=== PATIENT | female | born 1960 | race Caucasian/White ===

== ENCOUNTER → 2017-01-23 | Outpatient (CLI) | payer OTHER, MEDICAID | LOC: FIMAGING 14:52 | PROVIDERS: ATTEND Physician Assistant | DX: Z12.31 Encounter for screening mammogram for malignant neoplasm of breast (principal) | CPT/HCPCS: G0202 ==

== ENCOUNTER 2017-07-08 17:37 | Observation (INO) | payer OTHER, MEDICAID ==
[2017-07-08] MEDS ORDERED: NS 1,000 ML IV ONE (17:43)
[2017-07-08] MEDS ORDERED: D50W 25 GM/50 ML SYR IVP ONE ×2 (17:43→17:47)
--- NOTE | 2017-07-08 17:43 | EDPHY ---
H & P Time Seen by Provider: 07/08/17 17:43 HPI/ROS: Chief complaint. Stroke activation HPI. 56-year-old female here emergently by EMS with stroke activation. Her talked with her at 4:00 p.m. And she was normal. He called and got home about 5:00 p.m. And found the patient to have decreased responsiveness and slurred speech so he called EMS. EMS found the patient to have a blood sugar of 50. They gave her oral glucose. They recheck her glucose and found it to be 55. She arrives with continuing symptoms. No focal weakness or paresthesias. She tells me no chest discomfort or trouble breathing. She was seen by her PCP earlier today for COPD checkup and felt to be stable. ROS Constitutional. Generalized weakness Eyes. no problems with vision ENT. no sore throat, no nasal drainage Cardiovascular. no chest pain Respiratory. no shortness of breath, no cough Abdominal. no abdominal pain, no nausea/vomiting, no diarrhea . no problems urinating MS. no calf pain/swelling, no neck/back pain, no joint pain Skin. no rash Lymph. no swollen glands Neuro. Slurred speech and decreased level of consciousness and not able to walk Past Medical/Surgical History: Past medical history significant for Graves disease, depression, chronic to feet fatigue, multiple personalities, fibromyalgia Social History: , daily smoker, no alcohol Smoking Status: Current every day smoker Physical Exam: General Appearance: Alert well-developed female with slow mentation and some garbled speech. Moderate distress. Vital signs are stable Eyes: Pupils equal and round no pallor or injection. ENT, Mouth: Mucous membranes are moist. Respiratory: There are no retractions, lungs are clear to auscultation. Cardiovascular: Regular rate and rhythm. Gastrointestinal: Abdomen is soft and nontender, no masses, bowel sounds normal. Neurological: Awake and alert, sensory and motor exams grossly normal. Speech is somewhat garbled. However cranial nerves are intact. There is no pronator drift. [id number] is intact. [id number] is normal. Skin: Warm and dry, no rashes. Musculoskeletal: Neck is supple nontender. Extremities symmetrical, full range of motion. Psychiatric: Patient is oriented X 3, there is no agitation. Constitutional: Initial Vital Signs Temperature (C) 36.9 C 07/08/17 17:47 Heart Rate 71 02/26/18 17:47 Respiratory Rate 20 07/08/17 17:47 Blood Pressure 96/70 L 07/08/17 17:47 O2 Sat (%) 96 07/08/17 17:47 O2 Delivery Mode Room Air Allergies/Adverse Reactions: No Known Allergies Allergy (Verified 07/08/17 19:59) Home Medications: Medication Instructions Recorded Atorvastatin Calcium [Lipitor 20 40 mg PO DAILY #30 tab 06/29/14 mg (*)] Acyclovir [Zovirax 400 mg (*)] 400 mg PO BID PRN 12/27/14 Docosanol [Abreva (*)] 1 lupillo TP 5XD PRN 12/27/14 traMADol [Ultram 50 mg (*)] 50 - 100 mg PO DAILY PRN 12/27/14 Atenolol [Tenormin 25 mg (*)] 25 mg PO DAILY 07/08/17 Carisoprodol [Soma (*)] 350 mg PO QID 07/08/17 DULoxetine [Cymbalta 30 MG (*)] 30 mg PO DAILY 07/08/17 DULoxetine [Cymbalta 60 MG (*)] 60 mg PO DAILY 07/08/17 Fluticasone Nasal [Flonase Nasal 2 sprays NASAL DAILY 07/08/17 [employer] (RX)] Ipratropium/Albuterol [Combivent 1 inh IH QID 07/08/17 Respimat Inhal [employer](*)] Levothyroxine [Synthroid 150 mcg 150 mcg PO DAILY10 07/08/17 (*)] Lurasidone HCl [Latuda] 40 mg PO DAILY@0800 07/08/17 Meclizine HCl [Meclizine HCl 12.5 12.5 - 25 mg PO TID PRN 07/08/17 mg (*)] Naproxen 500 mg PO BID 07/08/17 Omeprazole 20 mg PO DAILY 07/08/17 Prazosin HCl [Minipress 1mg (*)] 4 mg PO HS 07/08/17 Varenicline Tartrate [Chantix 1MG 1 mg PO BID 07/08/17 (*)] Zolpidem Tartrate [Ambien 5MG (*)] 10 mg PO HS PRN 07/08/17 clonazePAM [Klonopin (*)] 0.5 mg PO TID PRN 07/08/17 tiZANidine HCL [Zanaflex] 4 mg PO DAILY 07/08/17 traZODone [traZODONE 100MG (*)] 100 - 200 mg PO HS PRN 07/08/17 Medical Decision Making - Diagnostics EKG Interpretation: EKG interpreted by me shows normal sinus rhythm normal interval and axis. QRS is normal there is no significant ST elevation or depression. No arrhythmia. The rate is 72 Imaging Results: Imaging Impressions Chest X-Ray 07/08/17 17:38 Impression: Negative portable chest. Head CT 07/08/17 17:38 Impression: Negative noncontrast CT of the brain. No evidence of intracranial hemorrhage or acute cortical ischemia. Results called to Dr. Jabier Lane at 5:50 PM at the time of the interpretation. One-view chest x-ray interpreted by me is normal Noncontrast head CT reviewed by me and discussed with Dr. Ramirez shows no evidence for intracranial bleeding Procedures: IV normal saline monitor Patient is left on the stretcher and I took a brief history and did physical exam and neurologic exam and then the patient went to head CT. On return patient is given D50W IV. Her repeat blood sugar is in the 200s. Her mental status has gradually improved to normal. [facility] is consulted. I discussed the case with Dr. Guaman from [facility]. As the patient was hypoglycemic and is improving after D50W and has a normal noncontrast head CT he recommends no further workup on less the patient develops focal symptoms. He recommends overnight admission in the hospital. ED Course/Re-evaluation: Serial evaluations and patient is improved and back to baseline. Patient, her , and I discussed imaging and lab results. We discussed treatment plan including recommendation for admission. They expressed understanding I consulted discussed case with , hospitalist, who agrees to the admission Serial evaluations shows the patient continuing to improve after the IV dextrose Differential Diagnosis: Patient was a stroke activation and the indication was slurred speech and decreased mentation. However her exam was nonfocal. She was found to be hypoglycemic by EMS and was given oral glucose with only slight improvement of blood sugar level and symptoms continued. Her head CT was normal. Her symptoms improved after D50W. I think the cause of her symptoms was hypoglycemia and not CVA Critical Care Time: Critical care time exclusive procedures 40 min - Data Points Laboratory Results: Laboratory Results 07/08/17 17:24 07/08/17 19:12 07/08/1718 07/08/17 19:12 17:24 17:24 WBC RBC Hgb Hct MCV MCH MCHC RDW Plt Count MPV Neut % (Auto) Lymph % (Auto) Aiken % (Auto) Eos % (Auto) Baso % (Auto) Nucleat RBC Rel Count Absolute Neuts (auto) Absolute Lymphs (auto) Absolute Monos (auto) Absolute Eos (auto) Absolute Basos (auto) Absolute Nucleated RBC Immature Gran % Immature Gran # PT 14.3 SEC SEC (12.0-15.0) INR 1.09 (0.83-1.16) APTT 25.1 SEC SEC (23.0-38.0) Sodium 136 mEq/L mEq/L 139 mEq/L mEq/L (135-145) (135-145) Potassium 3.0 mEq/L L mEq/L 4.2 mEq/L mEq/L (3.5-5.2) (3.5-5.2) Chloride 105 mEq/L mEq/L 103 mEq/L mEq/L (97-110) (97-110) Carbon Dioxide 22 mEq/l mEq/l 20 mEq/l L mEq/l (22-31) (22-31) Anion Gap 9 mEq/L mEq/L 16 mEq/L mEq/L (8-16) (8-16) BUN 11 mg/dL mg/dL 11 mg/dL mg/dL (7-23) (7-23) Creatinine 0.7 mg/dL mg/dL 0.8 mg/dL mg/dL (0.6-1.0) (0.6-1.0) Estimated GFR > 60 > 60 Glucose 96 mg/dL D mg/dL 58 mg/dL L mg/dL (70-100) (70-100) Calcium 7.9 mg/dL L D mg/dL 9.7 mg/dL mg/dL (8.5-10.4) (8.5-10.4) Troponin I < 0.012 ng/mL ng/mL (0.000-0.034) 07/08/17 17:24 WBC 8.19 10^3/uL 10^3/uL (3.80-9.50) RBC 4.22 10^6/uL 10^6/uL (4.18-5.33) Hgb 13.4 g/dL g/dL (12.6-16.3) Hct 39.2 % % (38.0-47.0) MCV 92.9 fL fL (81.5-99.8) MCH 31.8 pg pg (27.9-34.1) MCHC 34.2 g/dL g/dL (32.4-36.7) RDW 12.5 % % (11.5-15.2) Plt Count 223 10^3/uL 10^3/uL (150-400) MPV 10.0 fL fL (8.7-11.7) Neut % (Auto) 43.1 % % (39.3-74.2) Lymph % (Auto) 49.9 % H % (15.0-45.0) Aiken % (Auto) 6.1 % % (4.5-13.0) Eos % (Auto) 0.2 % L % (0.6-7.6) Baso % (Auto) 0.5 % % (0.3-1.7) Nucleat RBC Rel Count 0.0 % % (0.0-0.2) Absolute Neuts (auto) 3.52 10^3/uL 10^3/uL (1.70-6.50) Absolute Lymphs (auto) 4.09 10^3/uL H 10^3/uL (1.00-3.00) Absolute Monos (auto) 0.50 10^3/uL 10^3/uL (0.30-0.80) Absolute Eos (auto) 0.02 10^3/uL L 10^3/uL (0.03-0.40) Absolute Basos (auto) 0.04 10^3/uL 10^3/uL (0.02-0.10) Absolute Nucleated RBC 0.00 10^3/uL 10^3/uL (0-0.01) Immature Gran % 0.2 % % (0.0-1.1) Immature Gran # 0.02 10^3/uL 10^3/uL (0.00-0.10) PT INR APTT Sodium Potassium Chloride Carbon Dioxide Anion Gap BUN Creatinine Estimated GFR Glucose Calcium Troponin I Medications Given: Discontinued Medications Dextrose (Dextrose 50% Syringe) 25 gm IVP EDNOW ONE Stop: 07/08/17 17:48 Last Admin: 07/08/17 17:50 Dose: 25 gm Sodium Chloride (Ns) 1,000 mls @ 0 mls/hr IV ONCE ONE; Wide Open PRN Reason: Protocol Stop: 07/08/17 17:44 Last Admin: 07/08/17 18:03 Dose: 1,000 mls Departure - Departure Disposition: [facility] Inpatient Acute Clinical Impression: Hypoglycemia Altered mental status Qualifiers: Altered mental status type: transient alteration of awareness Qualified Code(s) : R40.4 - Transient alteration of awareness Condition: Fair
[2017-07-08 17:59] LABS: PLATELET COUNT 223 10^3/uL (150-400)
--- NOTE | 2017-07-08 18:00 | CPEKG ---
Heart Rate: 72 RR Interval: 833 QRSD Interval: 94 QT Interval: 432 QTC Interval: 473 QRS [place]: 65 T Wave [place]: 49 EKG Severity - ABNORMAL ECG - EKG Impression: ACCELERATED JUNCTIONAL RHYTHM Electronically Signed By: Jabier Lane 08-Jul-2017 22:34:29
[2017-07-08 18:05] LABS: INR 1.09 (0.83-1.16); PROTIME(PATIENT) 14.3 SEC (12.0-15.0)
[2017-07-08] MEDS ORDERED: LORazepam 0.5 MG TAB PO PRN (23:30)
[2017-07-08] MEDS ORDERED: ONDANSETRON 4 MG/2 ML VIAL IVP PRN (23:30)
[2017-07-08] MEDS ORDERED: ACETAMINOPHEN 325 MG TAB PO PRN (23:30)
[2017-07-08] MEDS ORDERED: D50W 25 GM/50 ML VIAL IVP PRN (23:32)
[2017-07-09] MEDS ORDERED: PROTOCOL CALCIUM 1 DOSE IV PRN (00:40)
[2017-07-09] MEDS ORDERED: PROTOCOL POTASSIUM 1 DOSE MISC PRN (00:40)
[2017-07-09] MEDS ORDERED: PROTOCOL MAGNESIUM 1 DOSE IV PRN (00:40)
[2017-07-09] MEDS ORDERED: PROTOCOL K PHOSPHATE 1 DOSE IV PRN (00:40)
[2017-07-09] MEDS ORDERED: NS 1,000 ML IV SCH (00:45)
--- NOTE | 2017-07-09 01:37 | GHP ---
[f rep st] HISTORY AND PHYSICAL DATE OF ADMISSION: 07/08/2017 SOURCE: Patient able to provide history, appears reliable. EMR was reviewed and case discussed with accepting hospitalist. CHIEF COMPLAINT: Altered mental status and slurred speech. HISTORY OF PRESENT ILLNESS: This is a 56-year-old female with past medical history significant for C OPD, Graves disease, depression, chronic fatigue, fibromyalgia, PTSD, bipolar 1, and dissociative per sonality disorder who presents emergency department today via EMS after her roommate found her with a ltered mental status and decreased responsiveness. Patient was seen one hour prior to this and was i n her usual state of health. Patient was thought to have a little bit of slurred speech, but no foca l deficits were noted. EMS arrived, and it was noted that patient's blood sugars were in the 50s. S he was given an amp of D50 with slow improvement in her blood sugar. Patient is without any previous history of diabetes. She denies any history of new medications prescribed or otherwise. She denies the use of any insulins. Patient actually reports that she cannot recall much of the events prior t o her arrival to the emergency department. Patient denies any acute illness. No fevers, chills, cou gh, rhinorrhea, sore throat, nausea, or vomiting. She has had some diarrhea without any abdominal pa in. Denies any melena or hematochezia. She denies any new rashes or sores. REVIEW OF SYSTEMS: Negative except as noted above. ALLERGIES: No known drug allergies. HOME MEDICATIONS: As per EMR, Chantix 1 mg p.o. twice daily, meclizine 12.5 mg to 25 mg p.o. three t imes daily p.r.n., Cymbalta 60 mg p.o. daily, naproxen 500 mg p.o. twice daily, Combivent 1 inhalatio n four times daily, Flonase 2 sprays daily, atenolol 25 mg p.o. daily, Ambien 10 mg p.o. at h.s., tra zodone 100 to 200 mg p.o. at h.s. p.r.n., tizanidine 4 mg p.o. daily, omeprazole 20 mg p.o. daily. S jacob 350 mg p.o. four times daily, tramadol 50 to 100 mg p.o. daily p.r.n., mg p.o. h.s., L atuda 40 mg p.o. daily, levothyroxine 150 mcg p.o. daily, Klonopin 0.5 mg p.o. three times daily p.r. n., Abreva applied p.r.n., atorvastatin 40 mg p.o. daily, and acyclovir 400 mg p.o. twice daily p.r.n . PAST MEDICAL HISTORY: Significant for COPD, Graves disease, depression, chronic fatigue, fibromyalgi a, bipolar 1 disorder, PTSD, and history of dissociative personality disorder. PAST SURGICAL HISTORY: Significant for right ORIF, , and hysterectomy. FAMILY HISTORY: Patient denies any diabetes, but positive for hypertension and CAD. SOCIAL HISTORY: Patient currently resides with a roommate. She does smoke approximately half pack p er day for many years. She utilizes medical marijuana, denies any alcohol intake. CODE STATUS: Full. PHYSICAL EXAMINATION: VITAL SIGNS: Upon arrival to the emergency department, blood pressure is 96/7 0, heart rate 71, respiratory rate 20, O2 saturation 96% on room air with a temperature of 36.9. Cur rent vitals show blood pressure of 91/52, heart rate 60, respiratory rate 18, O2 saturation 92% on ro om air with a temperature of 36.4. GENERAL: No acute distress, pleasant, chronically-ill adult jose m virgen who is lying quietly in bed. She does appear older than stated age. HEAD: Normocephalic, atraum atic. EYES: Extraocular muscles are intact. Pupils equal, round, react to light bilaterally and sy mmetric. No scleral icterus or conjunctival injection. ENT: Mucous membranes appear moist. Patien t is missing some upper dentition. No oropharyngeal erythema or exudates. NECK: Supple. Trachea m idline. CV: Regular rate and rhythm. No murmurs, rubs, or gallops appreciated. Slightly distant h eart sounds. RESPIRATORY: Unlabored breathing. LUNGS: Clear to auscultation bilaterally. No whee zes, rales, or rhonchi. ABDOMEN: Obese, soft, nontender to palpation. No rebound, guarding, or mas ses appreciated. : No suprapubic tenderness to palpation. No CVA tenderness. No Ulloa in place. EXTREMITIES: Patient without any cyanosis, clubbing, or edema appreciated. 1+ pedal pulses bilate rally and symmetric. NEURO: Grossly nonfocal. Moves all extremities. Strength grossly intact. PS YCH: Patient awake, alert, and oriented x4. She is pleasant and cooperative at this time. No agita tion. LABORATORY STUDIES: WBC is 8.19, H and H are 13.4 and 39.2, MCV of 92.9, platelet count is 223. No bands. PT is 14.3, INR is 1.09, PTT is 25.1. Sodium 139, potassium 4.2, chloride 103, CO2 is 20, anion gap 16, BUN 11, creatinine 0.8 GFR greater than 60, glucose 58, calcium 9.7. Troponin is negative. Repeat BMP in the ER showed sodium 136, pot assium 3.0, chloride 105, CO2 of 22, anion gap 9, BUN 11, creatinine 0.7, GFR greater than 60, glucos e 96, calcium 7.9. EKG reviewed by myself shows accelerated junctional rhythm. QTc 470s. CT head: Image report reviewed negative noncontrast CT. Chest x-ray image report reviewed. Normal. ASSESSMENT AND PLAN: A pleasant 56-year-old female with history of chronic obstructive pulmonary dis ease, Graves, depression, and psychiatric illness who presents to the emergency department today foll owing episode of altered mental status and decreased responsiveness. 1. Hypoglycemia. Patient's blood sugars did improve slightly after D50. She does note that she has had some skipped meals in the last day or two, which could be contributing to her level of hypoglyce jamie. She denies any new additional antihyperglycemics or use of any needles or insulin injection. W e will plan to continue to monitor. Advance patient's diet. Accu-Cheks p.r.n. D50 p.r.n.. 2. Altered mental status related to hypoglycemia. At this time, patient appears to be oriented x3 a nd interactive. 3. Hypokalemia. Replacement has been ordered. Monitor on telemetry. 4. Hypocalcemia. Patient repeat testing showing a sudden drop in her calcium. We will also check a mag phos and other electrolytes. Additionally, we will check a TSH and cortisol in the morning. 5. Chronic medical issues, including chronic obstructive pulmonary disease, Graves, depression, fibr omyalgia, post-traumatic stress disorder, bipolar 1, and personality dissociative disorder. We will plan to resume patient's home medications. Please see med rec as noted above. We will hold off on s ome of her sedatives and narcotics secondary to patient's initial altered mental status. This does a ppear to be improving. 6. Fluid, electrolyte, nutrition. We will add some IV fluids for hydration. Patient with some low normal blood pressures in the high 90s to low 100s. 7. Electrolytes will be monitored and replaced as noted above. Protocols have been ordered. Diet w ill be advanced as tolerated to regular. 8. Prophylaxis with SCDs, anticoagulation if patient should stay an additional day. 9. Code status is full. DISPOSITION: Patient has been admitted to observation status on the medical floor at this time. /[id number]/MODL
[2017-07-09 05:03] LABS: PLATELET COUNT 174 10^3/uL (150-400)
[2017-07-09] MEDS ORDERED: LURASIDONE HCL 40 MG TAB PO SCH (08:00)
[2017-07-09] MEDS ORDERED: POTASSIUM CL 10 MEQ TAB PO ONE (08:11)
[2017-07-09] MEDS ORDERED: ZOLPIDEM TARTRATE 5 MG TAB PO PRN (08:46)
[2017-07-09] MEDS ORDERED: traMADol 50 MG TAB PO PRN (08:46)
[2017-07-09] MEDS ORDERED: ACYCLOVIR 400 MG TAB PO PRN (08:46)
[2017-07-09] MEDS ORDERED: MECLIZINE HCL 12.5 MG TAB PO PRN (08:46)
[2017-07-09] MEDS ORDERED: DOCOSANOL 2 GM CREAM TP PRN (08:46)
[2017-07-09] MEDS ORDERED: clonazePAM 0.5 MG TAB PO PRN (08:46)
[2017-07-09] MEDS ORDERED: traZODone 100 MG TAB PO PRN (08:46)
[2017-07-09] MEDS ORDERED: POTASSIUM CL 20 MEQ TAB PO ONE ×2 (08:52→11:15)
[2017-07-09] MEDS ORDERED: COSYNTROPIN 0.25 MG/2 ML SYRINGE IVP ONE (08:53)
[2017-07-09] MEDS ORDERED: NAPROXEN SODIUM 220 MG TAB PO SCH (09:00)
[2017-07-09] MEDS ORDERED: PANTOPRAZOLE SODIUM 40 MG TAB PO SCH (09:00)
[2017-07-09] MEDS ORDERED: FLUTICASONE NASAL 120 SPRAYS/16 GM MDI EACHNARE SCH (09:00)
[2017-07-09] MEDS ORDERED: POTASSIUM Cl (KCl) 40 MEQ in NS 1,000 ML IV SCH (09:00)
[2017-07-09] MEDS ORDERED: ATENOLOL 25 MG TAB PO SCH (09:00)
[2017-07-09] MEDS ORDERED: DULoxetine 60 MG CAP PO SCH (09:00)
[2017-07-09] MEDS ORDERED: ATORVASTATIN CALCIUM 20 MG TAB PO SCH (09:00)
[2017-07-09] MEDS ORDERED: NICOTINE 14 MG/24 HR PATCH TD SCH (09:00)
[2017-07-09] MEDS ORDERED: DULoxetine 30 MG CAP PO SCH (09:00)
[2017-07-09] MEDS ORDERED: ENOXAPARIN 40 MG/0.4 ML SYR SC SCH (09:00)
[2017-07-09] MEDS ORDERED: VARENICLINE TARTRATE 1 MG TAB PO SCH (09:00)
--- NOTE | 2017-07-09 09:24 | CPEKG ---
Heart Rate: 71 RR Interval: 845 P-R Interval: 184 QRSD Interval: 74 QT Interval: 440 QTC Interval: 479 P [place]: 75 QRS [place]: 51 T Wave [place]: 57 EKG Severity - NORMAL ECG - EKG Impression: SINUS RHYTHM Electronically Signed By: Gabriel Osorio 09-Jul-2017 11:34:16
[2017-07-09] MEDS ORDERED: LEVOTHYROXINE 150 MCG TAB PO SCH (10:00)
--- NOTE | 2017-07-09 10:05 | ASMTCASEMG ---
Living Arrangements What is your living Answers: Alone arrangement? Who do you live with? Type Of Residence What kind of residence do Answers: Apartment you live in? Discharge Plan Comments Coordination Status Comments Notes: Patient is a 56 yo female who was admitted for Hypoglycemia, altered mental status, Hypokalemia, Hypocalcemia, and chronic medical issues including PTSD, depression, Bipolar 1, and personality dissociative disorder. No orders for therapies except smoking cessation. Patient is currently on observation status. D/C needs TBD. CM will follow. Date Signed: 07/09/2017 10:05 AM Electronically Signed By:Roslyn Duval LCSW
[2017-07-09] MEDS: CARISOPRODOL 350 MG TAB PO SCH ×3 (10:52→17:34)
[2017-07-09] MEDS ORDERED: IPRATROPIUM/ALBUTEROL 4GM MDI IH SCH (12:00)
[2017-07-09 15:42] VITALS: BP 122/76; PULSE 75; RESP 16; TEMP 98.9; O2SAT 96
--- NOTE | 2017-07-09 19:49 | PDDCSUM ---
Discharge Summary Discharge Summary: DISCHARGE SUMMARY FOLLOW-UP ITEMS: 1. Schedule outpatient endocrinology workup 2. Repeat creatinine BUN and lytes DATE OF ADMISSION: 07/08/2017 DATE OF DISCHARGE: 07/09/2017 DISCHARGE DIAGNOSES: 1. Acute hypoglycemia 2. Acute hypokalemia 3. Acute hypotension 4. Suspected acute adrenal insufficiency 5. Acute encephalopathy CONSULTATIONS: None PROCEDURES / IMAGING: Head CT without any abnormalities comma chest x-ray without any focal infiltrates, EKG with possible junctional rhythm CHIEF COMPLAINT: Acute unresponsiveness SUBJECTIVE: Patient is feeling well at time discharge, she is fully interactive and is at baseline PHYSICAL EXAM ON DISCHARGE: Systolic blood pressure is 122, heart rate 75, afebrile overnight, satting on room air, alert awake oriented x3, no apparent distress, heart rhythm is regular , lungs are clear to auscultation bilaterally, abdomen is soft nontender nondistended LABS ON DISCHARGE: Positive cosyntropin stim test with cortisol level going from 1.7-31, TSH 0.17, respiratory viral panel negative, liver panel unremarkable, glucose level 93 at time of discharge, creatinine 0.8, potassium 4.6 HOSPITAL COURSE BY PROBLEM: Patient presented with acute unresponsiveness and resultant encephalopathy evidenced by global brain dysfunction which was an acute change from her baseline, most likely secondary to the metabolic effects of acute hypoglycemia and hypotension. The patient received dextrose and IV fluids, and was stabilized. The etiology of her hypoglycemia, hypotension, hypokalemia may have been secondary to suspected acute adrenal insufficiency, with a serum cortisol level of 1.7 and a positive cosyntropin stim test. The cause of adrenal insufficiency may be medication effect, and I have instructed the patient to discontinue her tramadol until she can see Dr. Carcamo from Endocrinology in the outpatient setting. Given the patient's hypotension and possible junctional rhythm on EKG, I have instructed her to hold her atenolol. She should follow up with her primary care provider to readdress whether atenolol is necessary for her baseline tachycardia, which is most likely either psychologically mediated or secondary to her multiple psychiatric medication affect. The patient is currently stable for baseline with a normal blood pressure, normal glucose level, normal potassium level after supplementation. DISCHARGE MEDICATIONS: Please see official discharge medication reconciliation sheet in chart , continue home medications with the exception of discontinuing atenolol, Ultram. DISCHARGE INSTRUCTIONS: Please follow up with Dr. Carcamo, [facility].
[2017-07-09] MEDS ORDERED: PRAZOSIN HCL 1 MG CAP PO SCH (21:00)
== END 2017-07-09 17:33 | disposition home or self-care (01) ==
LOC: EDUNIT# → INTOOBSV 19:25 → F3E 21:27
PROVIDERS: ADMIT Internal Medicine; ATTEND Internal Medicine
DX: E16.2 Hypoglycemia, unspecified (principal); E87.6 Hypokalemia; I95.9 Hypotension, unspecified; E27.40 Unspecified adrenocortical insufficiency; E83.51 Hypocalcemia; E86.9 Volume depletion, unspecified; G93.40 Encephalopathy, unspecified; R00.0 Tachycardia, unspecified; J44.9 Chronic obstructive pulmonary disease, unspecified; R53.82 Chronic fatigue, unspecified; M79.7 Fibromyalgia; F17.210 Nicotine dependence, cigarettes, uncomplicated; F31.9 Bipolar disorder, unspecified; F43.10 Post-traumatic stress disorder, unspecified; E05.00 Thyrotoxicosis with diffuse goiter without thyrotoxic crisis or storm
CPT/HCPCS: 70450; 71045; 93005; G0378; J0834; J1650; J3480; 96374

== ENCOUNTER → 2018-01-29 | Outpatient (CLI) | payer OTHER, MEDICAID | LOC: FIMAGING 14:21 | PROVIDERS: ATTEND Physician Assistant | DX: R55 Syncope and collapse (principal) ==

== ENCOUNTER 2018-04-23 08:57 | Observation (INO) | payer OTHER, MEDICAID ==
--- NOTE | 2018-04-23 09:11 | EDPHY ---
H & P Stated Complaint: stroke like symptoms Time Seen by Provider: 04/23/18 09:08 HPI/ROS: CHIEF COMPLAINT: Altered mentation HISTORY OF PRESENT ILLNESS: 57-year-old female arrives via ambulance after the daughter contacted 911 due to abnormal speech on the telephone this morning. Last seen normal at 1930 hours last evening. Further information provided by who was at work this morning, indicating that for the past 1 year patient seems to have progressive neurologic issues, notably she will have slurred speech speech episodes, will have difficulty speaking and eating. Denies acute trauma. PRIMARY CARE PROVIDER: Jenna Erazo [facility] REVIEW OF SYSTEMS: 10 systems reviewed and negative with the exception of the elements mentioned in the history of present illness PAST MEDICAL & SURGICAL HISTORY: Prior hospitalization, June 2017 at [facility] for acute hypoglycemia, acute hypokalemia, acute hypotension, acute encephalopathy, suspected adrenal insufficiency. SOCIAL HISTORY: Denies alcohol or drugs use. . PHYSICAL EXAM (Prior to examination, patient consented to physical exam, hands were washed and my usual and customary physical exam procedures followed) 1) GENERAL: Well-developed, well-nourished, alert and oriented. Appears to be in no acute distress. 2) HEAD: Normocephalic, atraumatic 3) HEENT: Pupils equal, round, reactive to light bilaterally. Sclera anicteric. Nasopharynx, oropharynx, clear, no lesions. MoistDry mucous membranes. Ears bilaterally with normal tympanic membranes. 4) NECK: Full range of motion, no meningeal signs. 5) LUNGS: Clear auscultation bilaterally, no wheezes, no rhonchi, no retractions. 6) HEART: Regular rate and rhythm, no murmur, no heave, no gallop. 7) ABDOMEN: No guarding, no rebound, no focal tenderness, negative McBurney's, negative Bill's, negative Rovsing's, negative peritoneal sign, 8) MUSCULOSKELETAL: Moving all extremities, no focal areas of tenderness, no obvious trauma. No peripheral edema or discoloration. 9) BACK: No CVA tenderness, no midline vertebral tenderness, no fluctuance, no step-off, no obvious trauma, no visual or palpable abnormality. 10) SKIN: No rash, no petechiae. 11) Psychiatric: Patient is oriented X 3, slow speech, there is no agitation. DIFFERENTIAL DIAGNOSIS: In no particular orderincluding but not limited to hypoglycemia, infectious process, electrolyte abnormality, head injury and intoxicants. - Personal History Current Tetanus/Diphtheria Vaccine: Unsure Current Tetanus Diphtheria and Acellular Pertussis (TDAP): Unsure - Medical/Surgical History Hx Asthma: No Hx Chronic Respiratory Disease: Yes Hx Diabetes: No Hx Cardiac Disease: No Hx Renal Disease: No Hx Cirrhosis: No Hx Alcoholism: No Hx HIV/AIDS: No Hx Splenectomy or Spleen Trauma: No Other PMH: HTN, Graves disease--resolved with radiation therapy, now needs replacement therapy, Depression, Chronic fatique, Multiple personalities, fibromyalgia, bipolar disorder. Sx: partial hysterectomy, R ankle, tonsillectomy, basal cell carcinoma removal from arm - Social History Smoking Status: Current every day smoker Constitutional: Initial Vital Signs Temperature (C) 37.1 C 04/23/18 09:03 Heart Rate 69 04/23/18 09:03 Respiratory Rate 20 04/23/18 09:03 Blood Pressure 107/80 04/23/18 09:03 O2 Sat (%) 95 04/23/18 09:03 O2 Delivery Mode Room Air Allergies/Adverse Reactions: gabapentin Allergy (Verified 04/23/18 11:16) Other-Enter Comments Penicillins Allergy (Verified 04/23/18 11:16) Unknown Home Medications: Medication Instructions Recorded Acyclovir [Zovirax 400 mg (*)] 400 mg PO DAILY 12/27/14 Docosanol [Abreva (*)] 1 lupillo TP 5XD PRN 12/27/14 Carisoprodol [Soma (*)] 350 mg PO TID 07/08/17 DULoxetine [Cymbalta 60 MG (*)] 120 mg PO DAILY 07/08/17 Ipratropium/Albuterol [Combivent 1 inh IH QID 07/08/17 Respimat Inhal [place](*)] Lurasidone HCl [Latuda] 40 mg PO DAILY18 07/08/17 Meclizine HCl [Meclizine HCl 12.5 12.5 - 25 mg PO TID PRN 07/08/17 mg (*)] Naproxen 500 mg PO BID 07/08/17 Omeprazole 20 mg PO DAILY18 07/08/17 Varenicline Tartrate [Chantix 1MG 1 mg PO BID 07/08/17 (*)] Acetaminophen [Tylenol ES 500 mg 500 mg PO DAILY PRN 04/23/18 (*)] Atorvastatin Calcium [Lipitor 40 40 mg PO DAILY18 04/23/18 mg (*)] Levothyroxine [Synthroid 112 mcg 112 mcg PO DAILY06 04/23/18 (*)] clonazePAM [klonoPIN (*)] 2.5 mg PO DAILY PRN 04/23/18 traZODone [traZODone 150MG (*)] 300 mg PO HS 04/23/18 Medical Decision Making - Diagnostics Imaging Results: Imaging Impressions Chest X-Ray 04/23/18 09:01 Impression: No acute findings in the chest. Head CT 04/23/18 09:01 Impression: 1. No significant intracranial abnormality seen. No change since prior study. 2. Incidental note of the pituitary flattened against the floor the sella. If symptoms worsen, additional imaging may be necessary. Findings discussed with Carlos Jeffrey PAC at 10:20 hour, 04/23/2018. Images reviewed myself ED Course/Re-evaluation: 9:11 a.m.: Patient seen by myself and Dr Pineda at this time. Doubt acute CVA. NIH score 1. Will obtain diagnostic studies. Have reviewed the patient's old medical records. 10:40 a.m.: Re-evaluation with serial exams. She remains with consistent exam findings. Specific etiology for her altered mentation is incompletely clear at this time. Will plan on admission to the hospitalist. 10:50 a.m.: Phone consultation with hospitalist, admit to Dr. Raza for acute encephalopathy. - Data Points Laboratory Results: Laboratory Results 04/23/18 09:05 04/23/18 09:05 04/23/18 04/23/18 04/23/18 09:45 09:08 09:05 WBC RBC Hgb POC Hgb 13.6 gm/dL gm/dL (12.6-16.3) Hct POC Hct 40 % % (38-47) MCV MCH MCHC RDW Plt Count MPV Neut % (Auto) Lymph % (Auto) [place] % (Auto) Eos % (Auto) Baso % (Auto) Nucleat RBC Rel Count Absolute Neuts (auto) Absolute Lymphs (auto) Absolute Monos (auto) Absolute Eos (auto) Absolute Basos (auto) Absolute Nucleated RBC Immature Gran % Immature Gran # POC Sodium 141 mEq/L mEq/L (135-145) Sodium POC Potassium 4.2 mEq/L mEq/L (3.3-5.0) Potassium POC Chloride 105 mEq/L mEq/L (97-110) Chloride Carbon Dioxide Anion Gap POC BUN 10 mg/dL mg/dL (7-23) BUN Creatinine POC Creatinine 0.7 mg/dL mg/dL (0.6-1.0) Estimated GFR Glucose POC Glucose 90 mg/dL mg/dL (70-100) Calcium Total Bilirubin < 0.1 mg/dL L mg/dL (0.1-1.4) Conjugated Bilirubin 0.0 mg/dL mg/dL (0.0-0.5) Unconjugated Bilirubin 0.0 mg/dL mg/dL (0.0-1.1) AST 14 IU/L IU/L (14-46) ALT 19 IU/L IU/L (9-52) Alkaline Phosphatase 67 IU/L IU/L (38-126) Ammonia POC Troponin I Total Protein 6.2 g/dL L g/dL (6.3-8.2) Albumin 3.8 g/dL g/dL (3.5-5.0) Urine Color PALE YELLOW Urine Appearance CLEAR Urine pH 6.0 (5.0-7.5) Ur Specific [place] 1.010 (1.002-1.030) Urine Protein NEGATIVE (NEGATIVE) Urine Ketones NEGATIVE (NEGATIVE) Urine Blood NEGATIVE (NEGATIVE) Urine Nitrate NEGATIVE (NEGATIVE) Urine Bilirubin NEGATIVE (NEGATIVE) Urine Urobilinogen NEGATIVE EU EU (0.2-1.0) Ur Leukocyte Esterase NEGATIVE (NEGATIVE) Urine RBC NONE SEEN /hpf /hpf (0-3) Urine WBC 1-3 /hpf /hpf (0-3) Ur Epithelial Cells NONE SEEN /lpf /lpf (NONE-1+) Urine Glucose NEGATIVE (NEGATIVE) Urine Opiates Screen NEGATIVE (NEGATIVE) Urine Barbiturates NEGATIVE (NEGATIVE) Ur Phencyclidine Scrn NEGATIVE (NEGATIVE) Ur Amphetamine Screen NEGATIVE (NEGATIVE) U Benzodiazepines Scrn NEGATIVE (NEGATIVE) Urine Cocaine Screen NEGATIVE (NEGATIVE) U Marijuana (THC) Screen NEGATIVE (NEGATIVE) Ethyl Alcohol 12/12/18 12/12/18 12/12/18 09:05 09:05 09:05 WBC RBC Hgb POC Hgb Hct POC Hct MCV MCH MCHC RDW Plt Count MPV Neut % (Auto) Lymph % (Auto) [place] % (Auto) Eos % (Auto) Baso % (Auto) Nucleat RBC Rel Count Absolute Neuts (auto) Absolute Lymphs (auto) Absolute Monos (auto) Absolute Eos (auto) Absolute Basos (auto) Absolute Nucleated RBC Immature Gran % Immature Gran # POC Sodium Sodium 139 mEq/L mEq/L (135-145) POC Potassium Potassium 4.3 mEq/L mEq/L (3.5-5.2) POC Chloride Chloride 109 mEq/L mEq/L (97-110) Carbon Dioxide 22 mEq/l mEq/l (22-31) Anion Gap 8 mEq/L mEq/L (6-14) POC BUN BUN 10 mg/dL mg/dL (7-23) Creatinine 0.7 mg/dL mg/dL (0.6-1.0) POC Creatinine Estimated GFR > 60 Glucose 93 mg/dL mg/dL (70-100) POC Glucose Calcium 9.2 mg/dL mg/dL (8.5-10.4) Total Bilirubin Conjugated Bilirubin Unconjugated Bilirubin AST ALT Alkaline Phosphatase Ammonia 11.0 uMOL/L uMOL/L (9.0-30.0) POC Troponin I 0.00 ng/mL ng/mL (0.00-0.08) Total Protein Albumin Urine Color Urine Appearance Urine pH Ur Specific [place] Urine Protein Urine Ketones Urine Blood Urine Nitrate Urine Bilirubin Urine Urobilinogen Ur Leukocyte Esterase Urine RBC Urine WBC Ur Epithelial Cells Urine Glucose Urine Opiates Screen Urine Barbiturates Ur Phencyclidine Scrn Ur Amphetamine Screen U Benzodiazepines Scrn Urine Cocaine Screen U Marijuana (THC) Screen Ethyl Alcohol < 10 mg/dL mg/dL (0-10) 04/23/18 09:05 WBC 7.94 10^3/uL 10^3/uL (3.80-9.50) RBC 4.05 10^6/uL L 10^6/uL (4.18-5.33) Hgb 12.8 g/dL g/dL (12.6-16.3) POC Hgb Hct 38.2 % % (38.0-47.0) POC Hct MCV 94.3 fL fL (81.5-99.8) MCH 31.6 pg pg (27.9-34.1) MCHC 33.5 g/dL g/dL (32.4-36.7) RDW 12.9 % % (11.5-15.2) Plt Count 261 10^3/uL 10^3/uL (150-400) MPV 10.1 fL fL (8.7-11.7) Neut % (Auto) 60.2 % % (39.3-74.2) Lymph % (Auto) 35.3 % % (15.0-45.0) [place] % (Auto) 3.4 % L % (4.5-13.0) Eos % (Auto) 0.4 % L % (0.6-7.6) Baso % (Auto) 0.6 % % (0.3-1.7) Nucleat RBC Rel Count 0.0 % % (0.0-0.2) Absolute Neuts (auto) 4.78 10^3/uL 10^3/uL (1.70-6.50) Absolute Lymphs (auto) 2.80 10^3/uL 10^3/uL (1.00-3.00) Absolute Monos (auto) 0.27 10^3/uL L 10^3/uL (0.30-0.80) Absolute Eos (auto) 0.03 10^3/uL 10^3/uL (0.03-0.40) Absolute Basos (auto) 0.05 10^3/uL 10^3/uL (0.02-0.10) Absolute Nucleated RBC 0.00 10^3/uL 10^3/uL (0-0.01) Immature Gran % 0.1 % % (0.0-1.1) Immature Gran # 0.01 10^3/uL 10^3/uL (0.00-0.10) POC Sodium Sodium POC Potassium Potassium POC Chloride Chloride Carbon Dioxide Anion Gap POC BUN BUN Creatinine POC Creatinine Estimated GFR Glucose POC Glucose Calcium Total Bilirubin Conjugated Bilirubin Unconjugated Bilirubin AST ALT Alkaline Phosphatase Ammonia POC Troponin I Total Protein Albumin Urine Color Urine Appearance Urine pH Ur Specific [place] Urine Protein Urine Ketones Urine Blood Urine Nitrate Urine Bilirubin Urine Urobilinogen Ur Leukocyte Esterase Urine RBC Urine WBC Ur Epithelial Cells Urine Glucose Urine Opiates Screen Urine Barbiturates Ur Phencyclidine Scrn Ur Amphetamine Screen U Benzodiazepines Scrn Urine Cocaine Screen U Marijuana (THC) Screen Ethyl Alcohol Medications Given: Discontinued Medications Acetaminophen (Tylenol) 650 mg PO EDNOW ONE Stop: 04/23/18 11:55 Last Admin: 04/23/18 11:57 Dose: 650 mg Nicotine (Nicoderm Cq) 21 mg TD ONCE ONE Stop: 04/23/18 10:49 Last Admin: 04/23/18 10:51 Dose: 21 mg Point of Care Test Results: Chemistry 04/23/18 04/23/18 09:08 09:05 POC Sodium 141 mEq/L mEq/L (135-145) POC Potassium 4.2 mEq/L mEq/L (3.3-5.0) POC Chloride 105 mEq/L mEq/L (97-110) POC BUN 10 mg/dL mg/dL (7-23) POC Creatinine 0.7 mg/dL mg/dL (0.6-1.0) POC Glucose 90 mg/dL mg/dL (70-100) POC Troponin I 0.00 ng/mL ng/mL (0.00-0.08) ISTAT H&H 04/23/18 09:08 POC Hgb 13.6 gm/dL gm/dL (12.6-16.3) POC Hct 40 % % (38-47) Departure - Departure Disposition: [facility] Inpatient Acute Clinical Impression: Encephalopathy acute Condition: Fair NIH Stroke Scale Date of Exam: 04/23/18 Time of Exam: 09:00 Level of Consciousness: Alert LOC Questions: Answers Both LOC Commands: Performs Both Correctly Best Gaze: Normal Visual: No Visual Loss Facial Palsy: Normal Motor Arm-Left: No Drift Motor Arm-Right: No Drift Motor Leg-Left: No Drift Motor Leg-Right: No Drift Limb Ataxis: Absent Sensory: Normal Best Language: Mild/Mod Aphasia Dysarthria: Normal Extinction and Inattention (Neglect): No Abnormality NIH Scale Score: 1
[2018-04-23 09:25] LABS: PLATELET COUNT 261 10^3/uL (150-400)
--- NOTE | 2018-04-23 09:25 | CPEKG ---
Test Reason : OPEN Blood Pressure : / mmHG Vent. Rate : 065 BPM Atrial Rate : 065 BPM P-R Int : 201 ms QRS Dur : 069 ms QT Int : 409 ms P-R-T Axes : 079 056 083 degrees QTc Int : 426 ms Sinus rhythm Confirmed by Bijan Pineda ([id number]) on 04/23/2018 9:24:29 AM Referred By: Confirmed By:Bijan Pineda
[2018-04-23] MEDS ORDERED: NICOTINE 21 MG/24 HR PATCH TD ONE ×2 (10:48→10:49)
[2018-04-23] MEDS ORDERED: ACETAMINOPHEN 500 MG TAB PO ONE (11:54)
[2018-04-23] MEDS ORDERED: MELATONIN 3 MG TAB PO PRN (14:09)
[2018-04-23] MEDS ORDERED: ONDANSETRON 4 MG/2 ML VIAL IVP PRN (14:12)
[2018-04-23] MEDS ORDERED: ONDANSETRON DISINTEGRATING 4 MG TAB PO PRN (14:12)
[2018-04-23] MEDS ORDERED: NS 1,000 ML IV SCH (14:15)
[2018-04-23] MEDS ORDERED: clonazePAM 1 MG TAB PO PRN (14:23)
[2018-04-23] MEDS ORDERED: DOCOSANOL 2 GM CREAM TP PRN (14:23)
[2018-04-23] MEDS ORDERED: MECLIZINE HCL 12.5 MG TAB PO PRN (14:23)
--- NOTE | 2018-04-23 14:30 | PDGENHP ---
History and Physical - Chief Complaint slurred speech - History of Present Illness 57-year-old female arrives via ambulance after the daughter contacted 911 due to abnormal speech on the telephone this morning. Last seen normal at 1930 hours last evening. Further information provided by who was at work this morning, indicating that for the past 1 year patient seems to have progressive neurologic issues, notably she will have slurred speech She reports that she gets balance issues and vertigo and that this has been occurring for about a year. She has no focal weakness. She no longer has difficulty with speaking. [PRIMARY CARE PROVIDER:][ Jenna Erazo, [facility] ] [PAST MEDICAL & SURGICAL HISTORY:] Prior hospitalization, June 2017 at [facility] for acute hypoglycemia, acute hypokalemia, acute hypotension, acute encephalopathy, suspected adrenal insufficiency. SOCIAL HISTORY:[ Denies alcohol or drugs use. . ] FmHx: non contributory History Information - Allergies/Home Medication List Allergies/Adverse Reactions: gabapentin Allergy (Verified 04/23/18 11:16) Other-Enter Comments Penicillins Allergy (Verified 04/23/18 11:16) Unknown Home Medications: Acyclovir [Zovirax 400 mg (*)] 400 mg PO DAILY 12/27/14 [Last Taken 04/22/18] Docosanol [Abreva (*)] 1 lupillo TP 5XD PRN 12/27/14 [Last Taken Unknown] Carisoprodol [Soma (*)] 350 mg PO TID 07/08/17 [Last Taken 04/22/18 21:00] DULoxetine [Cymbalta 60 MG (*)] 120 mg PO DAILY 07/08/17 [Last Taken 04/22/18] Ipratropium/Albuterol [Combivent Respimat Inhal [place](*)] 1 inh IH QID 07/08/17 [Last Taken 04/22/18 21:00] Lurasidone HCl [Latuda] 40 mg PO DAILY18 07/08/17 [Last Taken 04/22/18] Meclizine HCl [Meclizine HCl 12.5 mg (*)] 12.5 - 25 mg PO TID PRN 07/08/17 [ Last Taken 04/23/18 25MG] Naproxen 500 mg PO BID 07/08/17 [Last Taken 04/22/18 21:00] Omeprazole 20 mg PO DAILY18 07/08/17 [Last Taken 04/22/18] Varenicline Tartrate [Chantix 1MG (*)] 1 mg PO BID 07/08/17 [Last Taken Unknown] Acetaminophen [Tylenol ES 500 mg (*)] 500 mg PO DAILY PRN 04/23/18 [Last Taken Unknown] Atorvastatin Calcium [Lipitor 40 mg (*)] 40 mg PO DAILY18 04/23/18 [Last Taken 04/22/18] Levothyroxine [Synthroid 112 mcg (*)] 112 mcg PO DAILY06 04/23/18 [Last Taken ] clonazePAM [klonoPIN (*)] 2.5 mg PO DAILY PRN 04/23/18 [Last Taken Unknown] traZODone [traZODone 150MG (*)] 300 mg PO HS 04/23/18 [Last Taken 04/22/18] I have personally reviewed and updated: medical history, social history - Social History Smoking Status: Current every day smoker Review of Systems Review of Systems: ROS: 10pt was reviewed & negative except for what was stated in HPI & below Physical Exam Physical Exam: Temp Pulse Resp BP Pulse Ox 37.2 C 64 12 103/70 95 04/23/18 12:34 04/23/18 12:34 04/23/18 12:34 04/23/18 12:34 04/23/18 12:34 Constitutional: no apparent distress Eyes: PERRL Ears, Nose, Mouth, Throat: moist mucous membranes, hearing normal Cardiovascular: regular rate and rhythym, no murmur, rub, or gallop, No edema Respiratory: no respiratory distress, no rales or rhonchi, clear to auscultation , reduced air movement Gastrointestinal: normoactive bowel sounds, soft, non-tender abdomen Skin: warm Neurologic: AAOx3 Psychiatric: interacting appropriately, not anxious, not encephalopathic Lymph, Heme, Immunologic: No petechiae Lab Data & Imaging Review 04/23/18 09:05 04/23/18 09:05 WBC 7.94 10^3/uL (3.80-9.50) 04/23/18 09:05 RBC 4.05 10^6/uL (4.18-5.33) L 04/23/18 09:05 Hgb 12.8 g/dL (12.6-16.3) 04/23/18 09:05 POC Hgb 13.6 gm/dL (12.6-16.3) 04/23/18 09:08 Hct 38.2 % (38.0-47.0) 04/23/18 09:05 POC Hct 40 % (38-47) 04/23/18 09:08 MCV 94.3 fL (81.5-99.8) 04/23/18 09:05 MCH 31.6 pg (27.9-34.1) 04/23/18 09:05 MCHC 33.5 g/dL (32.4-36.7) 04/23/18 09:05 RDW 12.9 % (11.5-15.2) 04/23/18 09:05 Plt Count 261 10^3/uL (150-400) 04/23/18 09:05 MPV 10.1 fL (8.7-11.7) 04/23/18 09:05 Neut % (Auto) 60.2 % (39.3-74.2) 04/23/18 09:05 Lymph % (Auto) 35.3 % (15.0-45.0) 04/23/18 09:05 [place] % (Auto) 3.4 % (4.5-13.0) L 04/23/18 09:05 Eos % (Auto) 0.4 % (0.6-7.6) L 04/23/18 09:05 Baso % (Auto) 0.6 % (0.3-1.7) 04/23/18 09:05 Nucleat RBC Rel Count 0.0 % (0.0-0.2) 04/23/18 09:05 Absolute Neuts (auto) 4.78 10^3/uL (1.70-6.50) 04/23/18 09:05 Absolute Lymphs (auto) 2.80 10^3/uL (1.00-3.00) 04/23/18 09:05 Absolute Monos (auto) 0.27 10^3/uL (0.30-0.80) L 04/23/18 09:05 Absolute Eos (auto) 0.03 10^3/uL (0.03-0.40) 04/23/18 09:05 Absolute Basos (auto) 0.05 10^3/uL (0.02-0.10) 04/23/18 09:05 Absolute Nucleated RBC 0.00 10^3/uL (0-0.01) 04/23/18 09:05 Immature Gran % 0.1 % (0.0-1.1) 04/23/18 09:05 Immature Gran # 0.01 10^3/uL (0.00-0.10) 04/23/18 09:05 POC Sodium 141 mEq/L (135-145) 04/23/18 09:08 Sodium 139 mEq/L (135-145) 04/23/18 09:05 POC Potassium 4.2 mEq/L (3.3-5.0) 04/23/18 09:08 Potassium 4.3 mEq/L (3.5-5.2) 04/23/18 09:05 POC Chloride 105 mEq/L (97-110) 04/23/18 09:08 Chloride 109 mEq/L (97-110) 04/23/18 09:05 Carbon Dioxide 22 mEq/l (22-31) 04/23/18 09:05 Anion Gap 8 mEq/L (6-14) 04/23/18 09:05 POC BUN 10 mg/dL (7-23) 04/23/18 09:08 BUN 10 mg/dL (7-23) 04/23/18 09:05 Creatinine 0.7 mg/dL (0.6-1.0) 04/23/18 09:05 POC Creatinine 0.7 mg/dL (0.6-1.0) 04/23/18 09:08 Estimated GFR > 60 04/23/18 09:05 Glucose 93 mg/dL (70-100) 04/23/18 09:05 POC Glucose 90 mg/dL (70-100) 04/23/18 09:08 Calcium 9.2 mg/dL (8.5-10.4) 04/23/18 09:05 Total Bilirubin < 0.1 mg/dL (0.1-1.4) L 04/23/18 09:05 Conjugated Bilirubin 0.0 mg/dL (0.0-0.5) 04/23/18 09:05 Unconjugated Bilirubin 0.0 mg/dL (0.0-1.1) 04/23/18 09:05 AST 14 IU/L (14-46) 04/23/18 09:05 ALT 19 IU/L (9-52) 04/23/18 09:05 Alkaline Phosphatase 67 IU/L (38-126) 04/23/18 09:05 Ammonia 11.0 uMOL/L (9.0-30.0) 04/23/18 09:05 POC Troponin I 0.00 ng/mL (0.00-0.08) 04/23/18 09:05 Total Protein 6.2 g/dL (6.3-8.2) L 04/23/18 09:05 Albumin 3.8 g/dL (3.5-5.0) 04/23/18 09:05 Urine Color PALE YELLOW 04/23/18 09:45 Urine Appearance CLEAR 04/23/18 09:45 Urine pH 6.0 (5.0-7.5) 04/23/18 09:45 Ur Specific [place] 1.010 (1.002-1.030) 04/23/18 09:45 Urine Protein NEGATIVE (NEGATIVE) 04/23/18 09:45 Urine Ketones NEGATIVE (NEGATIVE) 04/23/18 09:45 Urine Blood NEGATIVE (NEGATIVE) 04/23/18 09:45 Urine Nitrate NEGATIVE (NEGATIVE) 04/23/18 09:45 Urine Bilirubin NEGATIVE (NEGATIVE) 04/23/18 09:45 Urine Urobilinogen NEGATIVE EU (0.2-1.0) 04/23/18 09:45 Ur Leukocyte Esterase NEGATIVE (NEGATIVE) 04/23/18 09:45 Urine RBC NONE SEEN /hpf (0-3) 04/23/18 09:45 Urine WBC 1-3 /hpf (0-3) 04/23/18 09:45 Ur Epithelial Cells NONE SEEN /lpf (NONE-1+) 04/23/18 09:45 Urine Glucose NEGATIVE (NEGATIVE) 04/23/18 09:45 Urine Opiates Screen NEGATIVE (NEGATIVE) 04/23/18 09:45 Urine Barbiturates NEGATIVE (NEGATIVE) 04/23/18 09:45 Ur Phencyclidine Scrn NEGATIVE (NEGATIVE) 04/23/18 09:45 Ur Amphetamine Screen NEGATIVE (NEGATIVE) 04/23/18 09:45 U Benzodiazepines Scrn NEGATIVE (NEGATIVE) 04/23/18 09:45 Urine Cocaine Screen NEGATIVE (NEGATIVE) 04/23/18 09:45 U Marijuana (THC) Screen NEGATIVE (NEGATIVE) 04/23/18 09:45 Ethyl Alcohol < 10 mg/dL (0-10) 04/23/18 09:05 Assessment & Plan Assessment: #Acute Encephalopathy, possibly metabolic vs toxic, appears resolved -this is intermittent and can occur at all times throughout the day #Recurrent Falls and balance deficits #Generalized Weakness #Bradycardia: -self reported -EKG unremarkable #Fibromyalgia #Bipolar #Tobacco Abuse Disorder #COPD -self reported #Insomnia Plan: unclear etiology of her sx. Given the chronicity, will obtain an MRI Brain. telemetry PT/OT Hold Trazodone. Start Melatonin. We discussed no sleeping agent, but the patient is requesting one Would also consider decreasing Soma but the pt is not open to doing this at this point Nicotine Replacement SCD's Observation
[2018-04-23] MEDS: IPRATROPIUM/ALBUTEROL 4GM MDI IH SCH ×2 (15:28→21:28)
[2018-04-23] MEDS: CARISOPRODOL 350 MG TAB PO SCH ×2 (16:07→21:29)
[2018-04-23] MEDS ORDERED: GADOBUTROL 10 ML VIAL IVP ONE (17:41)
[2018-04-23] MEDS ORDERED: PANTOPRAZOLE SODIUM 40 MG TAB PO SCH (18:00)
[2018-04-23] MEDS ORDERED: ATORVASTATIN CALCIUM 40 MG TAB PO SCH (18:00)
[2018-04-23] MEDS ORDERED: LURASIDONE HCL 40 MG TAB PO SCH (18:00)
[2018-04-23] MEDS: ACETAMINOPHEN 325 MG TAB PO PRN (18:32)
[2018-04-23] MEDS: Naproxen [Naproxen] 500 MG PO SCH (21:30)
[2018-04-24] MEDS: ACETAMINOPHEN 325 MG TAB PO PRN (03:07)
[2018-04-24 05:26] LABS: PLATELET COUNT 197 10^3/uL (150-400)
[2018-04-24] MEDS: IPRATROPIUM/ALBUTEROL 4GM MDI IH SCH ×2 (05:50→10:22)
[2018-04-24] MEDS ORDERED: LEVOTHYROXINE 112 MCG TAB PO SCH (06:00)
[2018-04-24 07:47] VITALS: BP 127/80
[2018-04-24] MEDS: CARISOPRODOL 350 MG TAB PO SCH (08:30)
[2018-04-24] MEDS: Naproxen [Naproxen] 500 MG PO SCH (08:31)
[2018-04-24] MEDS ORDERED: ACYCLOVIR 400 MG TAB PO SCH (09:00)
[2018-04-24] MEDS ORDERED: DULoxetine 60 MG CAP PO SCH (09:00)
[2018-04-24] MEDS ORDERED: NICOTINE 21 MG/24 HR PATCH TD SCH (09:00)
--- NOTE | 2018-04-24 10:25 | ASMTCMCOM ---
CM Note CM Note Notes: Pt is a 57 y/o female admitted for acute encephalopathy. Pt has been experiencing a progressive neurologic decline for 1 year according to . Therapies have been ordered and awaiting recommendations. Needs are TBD at this time. CM to follow. Plan: TBD Date Signed: 04/24/2018 10:24 AM Electronically Signed By:ALEJANDRINA Little
--- NOTE | 2018-04-24 13:03 | ASMTCMCOM ---
CM Note CM Note Notes: CM spoke to MARTHA Golden. Pt will d/c independent without any needs. PT and [facility] has cleared pt to follow up w/ outpatient rehab. CM available for changes. Plan: Independent Date Signed: 04/24/2018 01:02 PM Electronically Signed By:ALEJANDRINA Little
--- NOTE | 2018-04-24 13:03 | ASMTLACE ---
CHELSEAE Length of stay for Answers: 1 day current admission Acuity / Level of Answers: No Care: Did the patient have an inpatient admission? # of Emergency department Answers: 1-2 visits in the last 6 months Social determinants Answers: Mental health diagnosis (anxiety, depression, pers onality disorders, etc.) Score: 5 Date Signed: 04/24/2018 01:03 PM Electronically Signed By:ALEJANDRINA Little
--- NOTE | 2018-04-24 15:44 | GDS ---
ALL DIAGNOSES: 1. Acute encephalopathy. 2. Polypharmacy. 3. Possible cerebral amyloid angiopathy. 4. Diarrhea. 5. Fibromyalgia. 6. Bradycardia. 7. Tobacco use disorder. 8. Chronic obstructive pulmonary disease. 9. Insomnia. HOSPITAL COURSE: A 57-year-old female with second admission this year for encephalopathy. Strongly suspect that this is due to her multiple psychotropic medications. I have discussed this with her. We will plan to slightly decrease her medications, including Soma from t.i.d. down to b.i.d., Klonopi n from 2.5 mg daily to 2 mg daily, and trazodone from 300 mg h.s. to 150 mg h.s. I have strongly enc ouraged her to follow up with her PCP, Dr. Erazo, as well as Dr. Sargent for ongoing management, especia pipoy if she has issues with this. She verbalizes understanding. She did have a brain MRI that showed question of cerebral amyloid angiopathy. Certainly can predispo se to dementia. This may be potentiating her encephalopathy. I have given her a referral to follow up with Dr. Dallas for this and consider an aspirin if he feels that her MRI is consistent with this wilbert gnosis. She complains of some diarrhea. There is norovirus going around; however, she has only had 3 episode s. No abdominal pain and no emesis. I have warned her to keep hydrated if she does develop worsenin g diarrhea and present to the ED if she becomes dehydrated. She understands. I have discussed all of this with her, and she feels ready for discharge. She is otherwise discharge d in stable condition. /[id number]/MODL
== END 2018-04-24 13:17 | disposition home or self-care (01) ==
LOC: EDUNIT# → F3E 12:30
PROVIDERS: ADMIT Family Medicine; ATTEND Student in an Organized Health Care Education/Training Program
DX: G93.40 Encephalopathy, unspecified (principal); R94.02 Abnormal brain scan; R00.1 Bradycardia, unspecified; R19.7 Diarrhea, unspecified; M79.7 Fibromyalgia; F17.200 Nicotine dependence, unspecified, uncomplicated; J44.9 Chronic obstructive pulmonary disease, unspecified; G47.00 Insomnia, unspecified; F31.9 Bipolar disorder, unspecified; R53.82 Chronic fatigue, unspecified; R29.701 NIHSS score 1; Z91.81 History of falling; Z88.0 Allergy status to penicillin
CPT/HCPCS: 70450; 70553; 71045; 92523; 93005; 96360; 96361; 97161; 99285; A9585; G0378; G8978; G8979; G8980; G9168; G9169; 80305; 82435-PO; 82565-PO; 82947-PO; 84132-PO; 84295-PO; 84484-PO; 84520-PO; 85014-PO; G0480